=== PATIENT | male | born 1985 | race Two or more races ===

== ENCOUNTER 2017-08-24 01:50 | Inpatient (IN) | payer OTHER ==
[~2017-08-24] VITALS: Ht 172.7 cm; Wt 68.0 kg
[2017-08-24 03:44] VITALS: Ht 172.7 cm; Wt 68.0 kg
[2017-08-24 04:02] VITALS: BP 133/63; PULSE 80; RESP 18
[2017-08-24] MEDS ORDERED: ONDANSETRON 4 MG INJ IV PRN (04:30)
[2017-08-24] MEDS ORDERED: NACL 0.9% 3 ML SYG IV SCH (04:30)
[2017-08-24] MEDS: DEXTROSE 5%-0.45% NACL 1,000 ML IV SCH ×3 (04:46→19:21)
[2017-08-24] MEDS: morphine 4 MG/ML VIAL IV PRN (04:46)
[2017-08-24] MEDS ORDERED: AZITHROMYCIN 250 MG TAB PO ONE (05:30)
[2017-08-24] MEDS ORDERED: PIPER-TAZO 3.375 GM IV (PMX) 50 ML IVPB SCH (06:00)
[2017-08-24] MEDS: IBUPROFEN 600 MG TAB PO SCH ×4 (06:20→23:46)
--- NOTE | 2017-08-24 07:12 | HP ---
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 ddx, reactive arthritis , gout, etc PLAN -He will be given Zithromax 1 g p.o. 1 and will be placed on ceftriaxone 1 g IV daily -ID consult will be placed -Will order a urethral and throat swab -will repeat arthrocentesis of his right knee and also will consider from the left ankle as well -NSAIDs HPI/ROS Admit Date/Time Admit Date/Time Aug 24, 2017 at 03:36 Hx of Present Illness This is a 32-year-old male with no past medical history who initially presented to [facility] complaining of right knee and left ankle swelling and tenderness. He was transferred to [facility] for insurance reasons. He said symptoms started 2 days ago and have been progressively getting worse. He denied any trauma to his knee or ankle. He reported similar problems in the past. He reports that subjective fever and chills. He denied chest pain, shortness of breath, dysphagia/odynophagia, back pain or joint pain, dysuria or urethral discharge. Lab at [facility] shows a WBC of 11,000 otherwise CBC and CMP were within acceptable range. Synovial fluid analysis of the right knee shows WBC of almost 10,000 with 67% neutrophils. The fluid was yellowish and cloudy. On further questioning he stated that he has been having unprotected sex with his girlfriend and other goals as well. He denied history of STDs. PMH/Family/Social Social History Smoking Status: Current every day smoker Exam/Review of Systems Vital Signs Vitals Vital Signs Date Time Temp Pulse Resp B/P Pulse Ox O2 Delivery O2 Flow Rate FiO2 08/24/17 04:02 98.0 80 18 133/63 95 Room Air Exam Constitutional: alert, oriented, well developed Head: atraumatic, normocephalic Eyes: EOMI, PERRL Respiratory: clear to auscultation, normal air movement Cardiovascular: nl pulses, regular rate and rhythm Gastrointestinal: non-tender, soft Musculoskeletal: other (Right knee swelling and tenderness as well as left ankle swelling and tenderness, mainly on the lateral aspect) Medications Medications Current Medications Dextrose/Sodium Chloride (D5-1/2ns) 1,000 ml @ 100 mls/hr Q10H IV Last administered on 08/24/17 04:46; Admin Dose 100 MLS/HR; Start 08/24/17 at 04: 00 Morphine Sulfate (morphine) 3 mg Q4H PRN IV PAIN Last administered on 04:46; Admin Dose 3 MG; Start 08/24/17 at 04:00 Ondansetron HCl (Zofran Inj) 4 mg Q6H PRN IV NAUSEA AND/OR VOMITING; Start at 04:30 Famotidine (Pepcid Iv) 20 mg Q12 IV ; Start 08/24/17 at 09:00 Ibuprofen 600 mg 600 mg Q6 PO Last administered on 08/24/17 06:20; Admin Dose 600 MG; Start 08/24/17 at 06:00 Ceftriaxone Sodium (Rocephin) 50 ml @ 100 mls/hr DAILY IVPB ; Start 08/24/17 at 09:00 BHAVIK AREVALO MD Aug 24, 2017 07:12
[2017-08-24 07:13] LABS: BASOPHILS % 0.3 % (0.0-2.0); EOSINOPHILS # 0.1 10^3/ul (0.0-0.5); EOSINOPHILS % 0.5 % (0.0-7.0); HEMATOCRIT 39.1 % (42.0-52.0); HEMOGLOBIN 13.2 g/dl (14.0-18.0); LYMPHOCYTES # 1.8 10^3/ul (0.8-2.9); LYMPHOCYTES % 17.6 % (15.0-51.0); MEAN CORPUSCULAR HEMOGLOBIN 30.3 pg (29.0-33.0); MEAN CORPUSCULAR HGB CONC 33.8 g/dl (32.0-37.0); MEAN CORPUSCULAR VOLUME 89.9 fl (82.0-101.0); MEAN PLATELET VOLUME 10.5 fl (7.4-10.4); MONOCYTES % 9.6 % (0.0-11.0); NEUTROPHIL # 7.2 10^3/ul (1.6-7.5); NEUTROPHILS % 71.6 % (39.0-77.0); PLATELET COUNT 258 10^3/UL (140-415); RED BLOOD COUNT 4.35 10^6/ul (4.70-6.10); RED CELL DISTRIBUTION WIDTH 12.9 % (11.5-14.5); WHITE BLOOD COUNT 10.1 10^3/ul (4.8-10.8)
[2017-08-24 07:32] LABS: ALBUMIN 3.4 g/dl (3.3-4.9); ALBUMIN/GLOBULIN RATIO 1.06; BILIRUBIN,INDIRECT 0.7 mg/dl (0-1.1); BILIRUBIN,TOTAL 0.7 mg/dl (0.2-1.3); CALCIUM 9.1 mg/dl (8.4-10.2); CREATININE 0.8 mg/dl (0.61-1.24); MAGNESIUM 2.2 mg/dl (1.7-2.5); PHOSPHORUS 2.8 mg/dl (2.5-4.9); TOTAL PROTEIN 6.6 g/dl (6.1-8.1)
[2017-08-24 08:14] VITALS: BP 83/49; PULSE 57
[2017-08-24] MEDS ORDERED: INFLUENZA VIRUS VACCINE 0.5 ML SYG IM* ONE (09:00)
[2017-08-24] MEDS: CEFTRIAXONE 1 GM/50 ML (PMX) 50 ML IVPB SCH (09:38)
[2017-08-24] MEDS: FAMOTIDINE 20 MG INJ IV SCH ×2 (09:38→21:41)
--- NOTE | 2017-08-24 11:05 | PN ---
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 Right knee and left ankle swelling - Tap performed at [facility] but still significant swelling present. IR consulted for repeat tap of right knee and will need left ankle as well - Rule out gonococcal arthritis and currently received antibiotics to cover - ID on board and recommendations appreciated. - remains afebrile and WBC normal - continue on IV ceftriaxone - pain control 2. Disposition - continue monitoring. awaiting IR drainage Subjective 24 Hr Interval Summary Free Text/Dictation Patient still complaining of pain in right knee and left ankle but controlled on pain medications. Frustrated that no interventions have occurred yet. Exam/Review of Systems Vital Signs Vitals Vital Signs Date Time Temp Pulse Resp B/P Pulse Ox O2 Delivery O2 Flow Rate FiO2 08/24/17 08:14 98.0 57 83/49 98 Room Air 08/24/17 04:02 18 Exam Constitutional: alert, oriented, well developed, No distress Psych: nl mood/affect Head: atraumatic, normocephalic Eyes: EOMI, PERRL ENMT: mucosa pink and moist Neck: non-tender, supple Respiratory: clear to auscultation, No crackles/rales, No wheezing Cardiovascular: regular rate and rhythm, No edema, No systolic murmur Gastrointestinal: non-tender, soft, No distended, No rebound or guarding Musculoskeletal: joint tenderness (Right knee and left ankle), swelling Extremities: No cyanosis, No edema Neurological: PHARMACEUTICAL SERVICE REPRESENTATIVE II-XII intact, nl mental status, nl speech Skin: nl turgor Lymph: nl lymph nodes Results Result Diagram: 08/24/17 0607 08/24/17 0607 Results 24 hrs Laboratory Tests Test 08/24/17 06:07 White Blood Count 10.1 Red Blood Count 4.35 L Hemoglobin 13.2 L Hematocrit 39.1 L Mean Corpuscular Volume 89.9 Mean Corpuscular Hemoglobin 30.3 Mean Corpuscular Hemoglobin Concent 33.8 Red Cell Distribution Width 12.9 Platelet Count 258 Mean Platelet Volume 10.5 H Neutrophils % 71.6 Lymphocytes % 17.6 Monocytes % 9.6 Eosinophils % 0.5 Basophils % 0.3 Nucleated Red Blood Cells % 0.0 Neutrophils # 7.2 Lymphocytes # 1.8 Monocytes # 1.0 H Eosinophils # 0.1 Basophils # 0.0 Nucleated Red Blood Cells # 0.0 Sodium Level 139 Potassium Level 4.0 Chloride Level 105 Carbon Dioxide Level 29 Anion Gap 9 Blood Urea Nitrogen 13 Creatinine 0.80 Glucose Level 131 Calcium Level 9.1 Phosphorus Level 2.8 Magnesium Level 2.2 Total Bilirubin 0.7 Direct Bilirubin 0.00 Indirect Bilirubin 0.7 Aspartate Amino Transf (AST/SGOT) 19 Alanine Aminotransferase (ALT/SGPT) 22 Alkaline Phosphatase 47 Total Protein 6.6 Albumin 3.4 Globulin 3.20 Albumin/Globulin Ratio 1.06 Medications Medications Current Medications Dextrose/Sodium Chloride (D5-1/2ns) 1,000 ml @ 100 mls/hr Q10H IV Last administered on 08/24/17 04:46; Admin Dose 100 MLS/HR; Start 08/24/17 at 04: 00 Morphine Sulfate (morphine) 3 mg Q4H PRN IV PAIN Last administered on 04:46; Admin Dose 3 MG; Start 08/24/17 at 04:00 Ondansetron HCl (Zofran Inj) 4 mg Q6H PRN IV NAUSEA AND/OR VOMITING; Start at 04:30 Famotidine (Pepcid Iv) 20 mg Q12 IV Last administered on 08/24/17 09:38; Admin Dose 20 MG; Start 08/24/17 at 09:00 Ibuprofen 600 mg 600 mg Q6 PO Last administered on 08/24/17 06:20; Admin Dose 600 MG; Start 08/24/17 at 06:00 Ceftriaxone Sodium (Rocephin) 50 ml @ 100 mls/hr DAILY IVPB Last administered on 08/24/17 09:38; Admin Dose 100 MLS/HR; Start 08/24/17 at 09:00 MILAN BUTTERFIELD MD Aug 24, 2017 11:05
[2017-08-24 11:41] LABS: INR 1.09; PROTIME 14.2 Sec (11.9-14.9); PT RATIO 1.1
[2017-08-24 11:42] LABS: PARTIAL THROMBOPLASTIN TIME 36.3 Sec (25.0-35.0)
--- NOTE | 2017-08-24 14:59 | CONS ---
DATE OF ADMISSION: 08/24/2017 DATE OF CONSULTATION: 08/24/2017 TYPE OF CONSULTATION: Infectious Disease. REASON FOR CONSULTATION: Antibiotic management. HISTORY OF PRESENT ILLNESS: Jose Manuel Lockwood is a 32-year-old male with no past medical history, of signi ficance, who presented to [facility] complaining of right knee and left knee swelling and tenderness. He was transferred to [facility]. He notes that his symptoms started 2 d ays prior to admission and has been getting progressively worse. He denied any trauma. Reported si milar problems in the past. He has had subjective fever and chills, shortness of breath. He denied chest pain, shortness of breath, dysuria or urethral discharge. At [facility] his white count was 11,000, here it is 10.1, H and H of 13.2 and 39.1, platelet count 258,000. BUN and creatinine is 13 /0.80. At [facility] synovial fluid analysis of the right knee showed white count was 10,000 with 6 7% neutrophils, fluid was yellowish and cloudy. He notes that he has had unprotected sex with his g irlfriend and other girls as well. He denies a history of sexually transmitted diseases. PAST MEDICAL HISTORY: Operations as outlined. FAMILY HISTORY: Noncontributory. SOCIAL HISTORY: Does not smoke, drink or abuse drugs. ALLERGIES: NONE TO PENICILLIN, SULFA OR FOODS. MEDICATIONS: Per chart. REVIEW OF SYSTEMS: As per HPI. PHYSICAL EXAMINATION: GENERAL: The patient is a well-developed, well-nourished male who is alert, responsive, in no acute distress. VITAL SIGNS: Stable. He is afebrile. SKIN: Without generalized rash. HEENT: Within normal limits. NECK: Supple. LYMPH NODES: None palpable. CHEST: Decreased breath sounds at the bases. HEART: Without murmur or gallop. ABDOMEN: Soft, nontender, without organosplenomegaly or masses. EXTREMITIES: He has right knee swelling and tenderness and left ankle swelling and tenderness. RECTAL AND GENITAL: Deferred. NEUROLOGIC: No focal neurological abnormalities. IMPRESSION AND PLAN: The patient was thought to have possible gonococcal arthritis versus reactive arthritis or gout. He was started on azithromycin 1 gram p.o. and also on ceftriaxone 1 gram IV misbah ly. A urethral swab was ordered and a throat swab was ordered. A repeat arthrocentesis of the knee is to be considered as well as that of the left ankle. I concur with this current approach. The o rders are in. I will dictate my findings to the hospitalist. If there are any fever, blood culture s should be done. Dictated By: CJ CALL MD, JD/FAHEEM Conf#: [id number] DID#: [id number]
[2017-08-24 15:08] VITALS: BP 91/50; PULSE 50
[2017-08-24] MEDS ORDERED: LIDOCAINE 1% (MPF) 5 ML VIAL ONE (17:24)
[2017-08-24 17:58] VITALS: BP 108/55; RESP 14
[2017-08-24 18:00] LABS: SYN FLD CLARITY CLOUDY; SYN FLD COLOR ORANGE; SYN FLD CRYSTALS NO CRYSTALS SEEN (None seen); SYN FLD SOURCE RIGHT KNEE
[2017-08-24 18:08] LABS: SYN FLD PMN % 68.1 % (0.0-25.0); SYN FLD WBC 5491 /cmm (0-150)
[2017-08-24 18:18] LABS: SYN FLD MN % 31.9 &
[2017-08-24 20:00] VITALS: BP 101/67; RESP 20
[2017-08-25 02:00] VITALS: BP 103/55; RESP 20
[2017-08-25 05:59] LABS: BASOPHILS % 0.2 % (0.0-2.0); EOSINOPHILS # 0.1 10^3/ul (0.0-0.5); EOSINOPHILS % 1.5 % (0.0-7.0); HEMATOCRIT 38.8 % (42.0-52.0); HEMOGLOBIN 12.7 g/dl (14.0-18.0); LYMPHOCYTES % 24.8 % (15.0-51.0); MEAN CORPUSCULAR HGB CONC 32.7 g/dl (32.0-37.0); MEAN CORPUSCULAR VOLUME 91.5 fl (82.0-101.0); MEAN PLATELET VOLUME 10.4 fl (7.4-10.4); MONOCYTE # 0.9 10^3/ul (0.3-0.9); MONOCYTES % 11.1 % (0.0-11.0); PLATELET COUNT 245 10^3/UL (140-415); RED BLOOD COUNT 4.24 10^6/ul (4.70-6.10); WHITE BLOOD COUNT 8.1 10^3/ul (4.8-10.8)
[2017-08-25 06:37] LABS: CALCIUM 8.7 mg/dl (8.4-10.2); CREATININE 0.86 mg/dl (0.61-1.24); MAGNESIUM 2.1 mg/dl (1.7-2.5); PHOSPHORUS 4.2 mg/dl (2.5-4.9); POTASSIUM 4.1 mmol/L (3.5-5.1)
[2017-08-25] MEDS: IBUPROFEN 600 MG TAB PO SCH ×3 (06:43→17:18)
[2017-08-25] MEDS: DEXTROSE 5%-0.45% NACL 1,000 ML IV SCH ×2 (06:43→17:19)
[2017-08-25 07:29] VITALS: BP 93/44; RESP 18
[2017-08-25] MEDS: FAMOTIDINE 20 MG INJ IV SCH ×2 (08:43→20:54)
[2017-08-25] MEDS: CEFTRIAXONE 1 GM/50 ML (PMX) 50 ML IVPB SCH (08:44)
[2017-08-25 11:02] LABS: HAAIG REFLEX REFLEX FILED
--- NOTE | 2017-08-25 11:29 | RADRPT ---
PROCEDURE: Ultrasound guided right knee joint aspiration. CLINICAL INDICATION: Right knee joint effusion. Infection. TECHNIQUE: Prior to the procedure, informed consent was obtained. Risks including bleeding and in fection were explained to the patient. The patient understood was willing to proceed. A procedural pause was performed. The patient's name, date of , and procedure to be performed were verifie d. Using local anesthetic, sterile technique and ultrasound guidance, a 21-gauge needle was advanced in to the right knee joint. 40 ml of cloudy serosanguineous fluid was aspirated and sent for laboratory analysis. The patient tolerated the procedure well. COMPARISON: None. FINDINGS: Images demonstrate the needle within the right knee joint effusion. IMPRESSION: 1. Satisfactory ultrasound-guided right knee joint effusion aspiration. RPTAT: QQ .Livan Montenegro MD, MD Date Time Electronically viewed and signed by .Livan Montenegro MD, MD on 08/25/2017 11:28 .R/
--- NOTE | 2017-08-25 12:15 | PN ---
Date/Time of Note Date/Time of Note DATE: 08/25/17 TIME: 11:50 Assessment/Plan VTE Prophylaxis VTE Prophylaxis Intervention: SCD's Lines/Catheters IV [facility] (from [facility] Peripheral IV Urinary Cath still in place: No Assessment/Plan Chief Complaint/Hosp Course 32-year-old male with migratory polyarthralgia, transferred from OSH with the right knee and left ankle swelling who also had synovial tap done at OSH prior to arrival. 1. Right knee and left ankle swelling/Pain Status: Acute Remarks: Improved -Patient had another IR guided right knee joint effusion aspiration on 2016- Fluid analysis suggest possible inflammatory arthritis (WBC>2,000) but WBC not as high as one should see in septic arthritis. No crystal identification to suggest any gouty arthritis. Differential diagnosis includes : possible gonococcal arthritis. -Add Gram stain and culture to synovitic fluid. CRP, ESR, hip panel to a.m. labs to rule out other inflammatory arthritis. -Obtain MRI of right knee and left ankle prior left ankle needle aspiration by IR which has been ordered-Consider Orthopedics involvement. -ABX per ID recommendation. Continue pain control -Patient received antibiotic coverage for concern for possible gonococcal arthritis. Follow-up with ID recommendations. Patient was seen in collaboration with Problems: Subjective 24 Hr Interval Summary Free Text/Dictation Patient with improvement in the right knee symptoms. However he continues to have pain on right knee. Left ankle is swollen and patient is scheduled for IR guided drainage on left ankle today. Exam/Review of Systems Vital Signs Vitals Vital Signs Date Time Temp Pulse Resp B/P Pulse Ox O2 Delivery O2 Flow Rate FiO2 08/25/17 07:29 98.9 65 18 93/44 95 08/24/17 15:08 Room Air Intake and Output 08/24/17 08/24/17 08/25/17 15:00 23:00 07:00 Intake Total 1300 ml Balance 1300 ml Exam General: Well developed,adequately built, not in any acute distress . HEENT: Normocephalic, Atraumatic, No laceration or hematoma; Eyes: PEERL, Conjunctiva clear, Anicteric sclera Neck: Supple without any lymphadenopathy, nontender, no JVD, no carotid bruits, trachea midline, no thyromegaly Cardiac: S1, S2 auscultated, regular rhythm and rate, no mumurs or gallop Pulmonary: Normal respiratory effort. Chest clear to auscultation bilaterally, no adventitious breath sounds GI: Abdomen normal to inspection. Soft, non tender, non- distended, no masses, no rebound tenderness or guarding. Bowel sounds active on all four quadrants Genitourinary: Deferred Extremities: Redness/swelling on left ankle. Right knee swelling resolved. No cyanosis, clubbing, or edema. Pulses [2+] bilaterally. Full ROM on all four extremities. No focal weakness appreciated. Neurologic: Alert to person, place, time, and situation. Affect appropriate, intact sensation. Skin: Clean,dry, and intact. No ecchymosis, no rashes, or lesions Results Result Diagram: 08/25/17 0530 08/25/17 0530 Results 24 hrs Laboratory Tests Test 08/24/17 16:55 08/25/17 05:30 08/25/17 10:45 Synovial Fluid Source RIGHT KNEE Synovial Fluid Color ORANGE Synovial Fluid Appearance CLOUDY Synovial Fluid Volume 20.0 H Synovial Fluid WBC 5491 H Synovial Fluid Polynuclear WBCs % 68.1 H Synovial Fluid Mononuclear WBCs % 31.9 Synovial Fluid Crystals NO CRYSTALS SEEN White Blood Count 8.1 Red Blood Count 4.24 L Hemoglobin 12.7 L Hematocrit 38.8 L Mean Corpuscular Volume 91.5 Mean Corpuscular Hemoglobin 30.0 Mean Corpuscular Hemoglobin Concent 32.7 Red Cell Distribution Width 13.0 Platelet Count 245 Mean Platelet Volume 10.4 Neutrophils % 62.0 Lymphocytes % 24.8 Monocytes % 11.1 H Eosinophils % 1.5 Basophils % 0.2 Nucleated Red Blood Cells % 0.0 Neutrophils # 5.0 Lymphocytes # 2.0 Monocytes # 0.9 Eosinophils # 0.1 Basophils # 0.0 Nucleated Red Blood Cells # 0.0 Sodium Level 145 H Potassium Level 4.1 Chloride Level 106 Carbon Dioxide Level 30 Anion Gap 13 Blood Urea Nitrogen 12 Creatinine 0.86 Glucose Level 89 # Uric Acid 2.1 L Calcium Level 8.7 Phosphorus Level 4.2 Magnesium Level 2.1 C-Reactive Protein 6.9 H Hepatitis B Surface Antigen Pending Hepatitis B Core Total Antibody Pending Hepatitis C Antibody Pending Medications Medications Current Medications Dextrose/Sodium Chloride (D5-1/2ns) 1,000 ml @ 100 mls/hr Q10H IV Last administered on 08/25/17 06:43; Admin Dose 100 MLS/HR; Start 08/24/17 at 04: 00 Morphine Sulfate (morphine) 3 mg Q4H PRN IV PAIN Last administered on 04:46; Admin Dose 3 MG; Start 08/24/17 at 04:00 Ondansetron HCl (Zofran Inj) 4 mg Q6H PRN IV NAUSEA AND/OR VOMITING; Start at 04:30 Famotidine (Pepcid Iv) 20 mg Q12 IV Last administered on 08/25/17 08:43; Admin Dose 20 MG; Start 08/24/17 at 09:00 Ibuprofen 600 mg 600 mg Q6 PO Last administered on 08/25/17 06:43; Admin Dose 600 MG; Start 08/24/17 at 06:00 Ceftriaxone Sodium (Rocephin) 50 ml @ 100 mls/hr DAILY IVPB Last administered on 08/25/17 08:44; Admin Dose 100 MLS/HR; Start 08/24/17 at 09:00 JLUIS PARADA NP Aug 25, 2017 12:01
[2017-08-25 13:55] LABS: HEPATITIS B CORE ANTIBODY NEGATIVE (NEGATIVE)
[2017-08-25 14:12] VITALS: BP 116/57; RESP 18
[2017-08-25 20:00] VITALS: BP 116/60; RESP 20
--- NOTE | 2017-08-25 23:01 | RADRPT ---
PROCEDURE: MRI OF THE RIGHT KNEE CLINICAL INDICATION: Arthritis, pain. History of meniscus tear 5 years ago. History of recent aspir ation of the right knee. Images obtained were of the right knee. TECHNIQUE: MRI images were obtained utilizing multiple sequences in multiple planes. Images were i nterpreted on a high-resolution PACS system. COMPARISON: None available. FINDINGS: There is no tear of the medial meniscus. The medial compartment cartilage is intact. There is no tear of the lateral meniscus. There is mild chondral softening along the central lateral tibial plateau. There is mild cortical irregularity along the central lateral tibial plateau with m inimal depression of the subchondral surface and minimal subchondral marrow edema which may be from prior trauma. There is no acute fracture. The lateral femoral condylar cartilage is intact. The anterior cruciate ligament is intact with mild mucoid degeneration. The posterior cruciate ligam ent is intact. The medial and lateral collateral ligaments are intact. The posterolateral corner supporting struct ures are intact. There is a small full-thickness chondral fissure along the median eminence of the patella with mild subchondral marrow edema on axial image 9. The trochlear cartilage is intact. The quadriceps and patellar tendons are intact. The medial and lateral patellofemoral ligament comp lexes are intact. There is normal signal in Hoffa's fat pad. A large joint effusion with mild synovitis is present. There is no popliteal cyst. There is mild edema within the anterior compartment musculature distal to the joint line. Mild edema is also noted within the subcutaneous soft tissues of the posterior knee and anterior knee. The pro ximal tibiofibular joint is intact with mild chondral loss and osseous spurring. RPTAT: HTLT IMPRESSION: 1. Small full-thickness chondral fissure within the median eminence of the patella with mild subcho ndral marrow edema. 2. Mild chondral softening within the central lateral tibial plateau with mild cortical irregularity along the subchondral surface with minimal subchondral marrow edema which may be from prior trauma but no acute fracture. 3. Mild mucoid degeneration of the anterior cruciate ligament. 4. Large joint effusion with mild synovitis. This appears out of proportion to the other findings in the knee without an acute fracture or history of trauma which can be seen with inflammatory arthrop athy or infection. .Myra Slaughter MD, MD Date Time Electronically viewed and signed by .Myra Slaughter MD, MD on 08/25/2017 23:01 .T/
--- NOTE | 2017-08-25 23:19 | RADRPT ---
PROCEDURE: MRI OF THE LEFT ANKLE. CLINICAL INDICATION: Arthritis, pain. Left ankle pain and swelling for 1 week. History of prior fra cture 8 years ago. TECHNIQUE: Multiple MRI images were obtained utilizing multiple pulse sequences in all three planes . Images were interpreted on high-resolution PACS system. COMPARISON: None. FINDINGS: There are areas of partial thickness chondral loss and fraying within the medial talar dome and oppo sing tibial plafond with mild subchondral marrow edema and small subchondral cysts along the medial talar dome. There is no significant depression of the subchondral surface. Small foci of partial thi ckness chondral loss with mild subchondral marrow edema and osseous spurring along the anterior and posterior tibial plafond are also present. There is a large tibiotalar joint effusion with mild syno vitis. There is no acute fracture. The subtalar joint is intact with mild chondral loss and a small to mode rate joint effusion. There is an os trigonum without marrow edema. Mild chondral loss and osseous sp urring are also present within the talonavicular joint. The calcaneocuboid and naviculocuneiform lauryn nts are intact. There is no tarsal coalition. The sinus tarsi is intact with a small amount of fluid . There is a nonaggressive appearing bone lesion within the central calcaneus measuring about 1.9 cm AP by 2.0 cm cranial-caudal by 1.5 cm transverse which may correspond with a cyst. There is a complete tear of the anterior talofibular ligament. The calcaneofibular ligament is intac t with mild thickening. The posterior talofibular ligament is intact. The anterior and posterior syn desmotic ligaments are intact. There is a mild sprain of the deltoid ligament fibers with mild incre ased signal. Spring ligament appears intact. The posterior tibial, flexor digitorum longus, flexor hallucis longus tendons are intact with a smal l to moderate amount of surrounding fluid. There is also moderate to marked tenosynovitis of the per oneus longus and brevis tendons which are otherwise intact. The superior peroneal retinaculum is int act. The tibialis anterior and extensor tendons are intact. The Achilles tendon and plantar fascia are intact. The plantar hindfoot muscles are unremarkable, without denervation or atrophy. RPTAT: HTLT IMPRESSION: 1. Osteoarthrosis of the tibiotalar joint with areas of partial thickness chondral loss along the an terior, posterior, and medial aspect of the joint with mild subchondral marrow edema. 2. Large tibiotalar joint effusion which appears out of portion to the other findings within the ank le without history of recent trauma or acute fracture which can be seen with inflammatory arthropath y or infection. 3. Complete tear of the anterior talofibular ligament. 4. Moderate to marked tenosynovitis of the peroneal tendons and mild to moderate tenosynovitis of th e posterior tibial and flexor tendons. 5. Nonaggressive appearing 2.0 cm lesion within the calcaneus which may correspond with intraosseous ganglion cyst or bone cyst. .Myra Slaughter MD, MD Date Time Electronically viewed and signed by .Myra Slaughter MD, on 08/25/2017 23:19 .T/
[2017-08-26] MEDS: IBUPROFEN 600 MG TAB PO SCH ×5 (00:09→23:50)
[2017-08-26 02:00] VITALS: BP 96/52; RESP 20
[2017-08-26] MEDS: morphine 4 MG/ML VIAL IV PRN (02:01)
[2017-08-26] MEDS: DEXTROSE 5%-0.45% NACL 1,000 ML IV SCH ×2 (06:00→16:00)
--- NOTE | 2017-08-26 06:48 | PN ---
DATE: 08/25/2017 SUBJECTIVE: No acute events overnight. The patient is awake, feels good, looks comfortable, no fev ers. Synovial fluid cultures pending, white blood cell count of synovial fluid is 5491. Hepatitis B and C serology negative. WBC 8.1, no shift, no bands. ESR 41, BUN 12, creatinine 0.86. Uric acid 2.1. ANTIMICROBIALS: The patient is on IV Rocephin. MICROBIOLOGY DIAGNOSTICS: MRI pending. PHYSICAL EXAMINATION: GENERAL: Well-nourished, well-developed, middle-aged man who is alert, in no distress. HEENT: Head atraumatic, normocephalic. Sclerae anicteric. Buccal mucosa pink. NECK: Supple. CHEST: Rise symmetrical. Breath sounds clear. HEART: S1, S2. ABDOMEN: Soft. Bowel tones present. EXTREMITIES: Left knee, no erythema. There is some swelling on the lateral part with some fluctuan ce. ASSESSMENT: 1. Left knee pain with fluid collection status post fluid aspiration. So far as per cytology, ther e is no evidence of infection, final cultures pending. PLAN: The patient remains stable, pending MRI of left knee pending final cultures and final workup. Dictated By: CINTHYA DARNELL PATIENT ASSESSMENT COORDINATOR for CJ CALL MD NI/NTS Conf#: [id number] DID#: [id number] CC: BHAVIK AREVALO MD;*EndCC*
[2017-08-26 07:26] VITALS: BP 97/43; RESP 18
[2017-08-26] MEDS: FAMOTIDINE 20 MG INJ IV SCH ×2 (09:50→21:10)
[2017-08-26] MEDS: CEFTRIAXONE 1 GM/50 ML (PMX) 50 ML IVPB SCH (09:50)
[2017-08-26] MEDS ORDERED: BETAMET NA PHOS/AC(6 MG/ML) 5ML INJ INJ ONE (11:30)
[2017-08-26] MEDS ORDERED: BUPIVACAINE 0.5%/EPI (SDV) 30 ML INJ INJ ONE (11:30)
--- NOTE | 2017-08-26 12:59 | PN ---
Date/Time of Note Date/Time of Note DATE: 08/26/17 TIME: 12:46 Assessment/Plan VTE Prophylaxis VTE Prophylaxis Intervention: SCD's Lines/Catheters IV Catheter Type (from [facility]): Peripheral IV Urinary Cath still in place: No Assessment/Plan Chief Complaint/Hosp Course 32-year-old male with migratory polyarthralgia, transferred from OSH with the right knee and left ankle swelling who also had synovial tap done at OSH prior to arrival. 1. Right knee and left ankle swelling/pain, Most likely etiology is inflammatory vs infectious arthritis/arthropathy. Status: Acute -Status post IR guided right knee joint effusion aspiration on 08/24/2017- F/u MRI with Large tibiotalar joint effusion, Large right knee effusion with degenerative changes. Fluid analysis (WBC>2,000-but not high as one should see in septic arthritis) along with high blood level of ESR/CRP suggestive of possible inflammatory arthritis. No crystal identification to suggest any gouty arthritis. Hep serology negative. -Orthopedic consult with who agreed to see patient. -F/u Gram stain and culture to synovitic fluid. -ABX per ID recommendation. Continue pain control -Obtain GC serology -Consider ATTILA/Rh factor analysis and Rheumatology follow-up as outpatient if indicated. Follow-up with ortho/ ID recommendations. Patient was seen in collaboration with Problems: Subjective 24 Hr Interval Summary Free Text/Dictation No acute distress. Exam/Review of Systems Vital Signs Vitals Vital Signs Date Time Temp Pulse Resp B/P Pulse Ox O2 Delivery O2 Flow Rate FiO2 08/26/17 07:26 97.5 48 18 97/43 97 08/24/17 15:08 Room Air Intake and Output 08/25/17 08/25/17 08/26/17 15:00 23:00 07:00 Intake Total 50 ml 1640 ml 500 ml Balance 50 ml 1640 ml 500 ml Exam General: Well developed,adequately built, not in any acute distress . HEENT: Normocephalic, Atraumatic, No laceration or hematoma; Eyes: PEERL, Conjunctiva clear, Anicteric sclera Neck: Supple without any lymphadenopathy, nontender, no JVD, no carotid bruits, trachea midline, no thyromegaly Cardiac: S1, S2 auscultated, regular rhythm and rate, no mumurs or gallop Pulmonary: Normal respiratory effort. Chest clear to auscultation bilaterally, no adventitious breath sounds GI: Abdomen normal to inspection. Soft, non tender, non- distended, no masses, no rebound tenderness or guarding. Bowel sounds active on all four quadrants Genitourinary: Deferred Extremities: Redness/swelling on left ankle. Right knee swelling resolved. No cyanosis, clubbing, or edema. Pulses [2+] bilaterally. Full ROM on all four extremities. No focal weakness appreciated. Neurologic: Alert to person, place, time, and situation. Affect appropriate, intact sensation. Skin: Clean,dry, and intact. No ecchymosis, no rashes, or lesions Results Result Diagram: 08/25/1752908/25/1730 Medications Medications Current Medications Dextrose/Sodium Chloride (D5-1/2ns) 1,000 ml @ 100 mls/hr Q10H IV Last administered on 08/25/17 17:19; Admin Dose 100 MLS/HR; Start 08/24/17 at 04: 00 Morphine Sulfate (morphine) 3 mg Q4H PRN IV PAIN Last administered on 02:01; Admin Dose 3 MG; Start 08/24/17 at 04:00 Ondansetron HCl (Zofran Inj) 4 mg Q6H PRN IV NAUSEA AND/OR VOMITING; Start at 04:30 Famotidine (Pepcid Iv) 20 mg Q12 IV Last administered on 08/26/17 09:50; Admin Dose 20 MG; Start 08/24/17 at 09:00 Ibuprofen 600 mg 600 mg Q6 PO Last administered on 08/26/17 05:58; Admin Dose 600 MG; Start 08/24/17 at 06:00 Ceftriaxone Sodium (Rocephin) 50 ml @ 100 mls/hr DAILY IVPB Last administered on 08/26/17 09:50; Admin Dose 100 MLS/HR; Start 08/24/17 at 09:00 Bupivacaine HCl/ Epinephrine Bitart (Sensorcaine 0.5%-Epi 1:200,000) DOSE PER MD ONCE INJ ; Start 08/26/17 at 13:00; Stop 08/26/17 at 23:00 JLUIS PARADA NP Aug 26, 2017 12:58
[2017-08-26] MEDS ORDERED: BUPIVACAINE 0.5%/EPI 1:200,000 50 ML (MDV) INJ SCH (13:00)
--- NOTE | 2017-08-26 13:44 | CONS ---
Date/Time of Note Date/Time of Note DATE: 08/26/17 TIME: 13:42 Assessment/Plan Assessment/Plan Chief Complaint/Hosp Course SUBJECTIVE: No acute events overnight. Looks comfortable no fevers ANTIMICROBIALS: IV Rocephin. PHYSICAL EXAMINATION: GENERAL: Well-nourished, well-developed, middle-aged man who is alert, in no distress. HEENT: Head atraumatic, normocephalic. Sclerae anicteric. Buccal mucosa pink. NECK: Supple. CHEST: Rise symmetrical. Breath sounds clear. HEART: S1, S2. ABDOMEN: Soft. Bowel tones present. EXTREMITIES: Left knee, no erythema. There is some swelling on the lateral part with some fluctuance. ASSESSMENT: 1. Left knee pain with fluid collection status post fluid aspiration. So far as per cytology, there is no evidence of infection, final cultures pending. PLAN: The patient remains stable, pending ortho eval. GOGO statff Problems: Consultation Date/Type/Reason Admit Date/Time Aug 24, 2017 at 03:36 Initial Consult Date Reason for Consultation id Exam/Review of Systems Vital Signs Vitals Vital Signs Date Time Temp Pulse Resp B/P Pulse Ox O2 Delivery O2 Flow Rate FiO2 08/26/17 07:26 97.5 48 18 97/43 97 08/24/17 15:08 Room Air Intake and Output 08/25/17 08/25/17 08/26/17 15:00 23:00 07:00 Intake Total 50 ml 1640 ml 500 ml Balance 50 ml 1640 ml 500 ml Results Result Diagram: 08/25/17 0530 08/25/17 0530 Medications Medications Current Medications Dextrose/Sodium Chloride (D5-1/2ns) 1,000 ml @ 100 mls/hr Q10H IV Last administered on 08/25/17 17:19; Admin Dose 100 MLS/HR; Start 08/24/17 at 04: 00 Morphine Sulfate (morphine) 3 mg Q4H PRN IV PAIN Last administered on 02:01; Admin Dose 3 MG; Start 08/24/17 at 04:00 Ondansetron HCl (Zofran Inj) 4 mg Q6H PRN IV NAUSEA AND/OR VOMITING; Start at 04:30 Famotidine (Pepcid Iv) 20 mg Q12 IV Last administered on 08/26/17 09:50; Admin Dose 20 MG; Start 08/24/17 at 09:00 Ibuprofen 600 mg 600 mg Q6 PO Last administered on 08/26/17 05:58; Admin Dose 600 MG; Start 08/24/17 at 06:00 Ceftriaxone Sodium (Rocephin) 50 ml @ 100 mls/hr DAILY IVPB Last administered on 08/26/17 09:50; Admin Dose 100 MLS/HR; Start 08/24/17 at 09:00 Bupivacaine HCl/ Epinephrine Bitart (Sensorcaine 0.5%-Epi 1:200,000) DOSE PER MD ONCE INJ ; Start 08/26/17 at 13:00; Stop 08/26/17 at 23:00 CINTHYA DARNELL NP Aug 26, 2017 13:44
[2017-08-26 14:37] VITALS: BP 100/50; RESP 18
--- NOTE | 2017-08-26 18:43 | CONS ---
DATE OF ADMISSION: 08/24/2017 DATE OF CONSULTATION: 08/26/2017 HISTORY OF PRESENT ILLNESS: The patient is a 32-year-old male, who was transferred in on the 24 August 2017 from [facility] because of the insurance arrangement. He obviously went to [facility] because of the painful swelling involving his right knee and left ankle. According to the patient, the right knee swelling started about 5 days ago without any memorable trauma. After a day or 2 painful swelling of the left ankle developed possibly because he was putting more weight on the left lower extremity because of the painful swelling involving right knee, however, the patient was not sure. He did not measure his temperature, but he thought that he had some feverishness sensation during this time, denies any a history of chills. He has a known history of IV drug abuse and according to the patient, his the last IV drug use was about a year ago. PHYSICAL EXAMINATION: GENERAL APPEARANCE: My examination revealed a 32-year-old male, who is not in any acute distress. VITAL SIGNS: He was afebrile at the time of my examination. EXTREMITIES: There was a considerable effusion involving the right knee along with mild tenderness and limit of motion. There also was a mild swelling around the left ankle with circumferential tenderness both in the right knee and left ankle. There were no signs of acute pyogenic process, such as increased warmth, acute tenderness or redness. DIAGNOSTIC DATA: The plain x-rays of the right knee and left ankle was not available because it has not been done. However, MRI scan of the right knee and left ankle was showing a considerable effusion. There also was evidence of degenerative changes which is unusual considering his age. DIAGNOSTIC IMPRESSION: Painful swelling of the right knee and left ankle. DIFFERENTIAL DIAGNOSES: Should include. 1. Symptomatic exacerbation of the pre-existing degenerative osteoarthritis of the right knee and left ankle. 2. Crystalline arthritis. 3. Septic arthritis. The WBC count in the laboratory studies of the aspirants was not high enough to satisfy the septic arthritis. There were no crystals in the examination of the synovial fluid. RECOMMENDATIONS: Trial of steroid injection of the right knee and left ankle for the treatment and also for the diagnosis by trial treatment. Recommended injection of the steroid into the right knee and left ankle was done immediately following my evaluation. Dictated By: In Charline Ramey MD /[email or web address] /Document#: [id number]
[2017-08-26 19:31] VITALS: BP 103/52; RESP 16
[2017-08-27] MEDS: morphine 4 MG/ML VIAL IV PRN ×2 (01:27→05:42)
[2017-08-27] MEDS: DEXTROSE 5%-0.45% NACL 1,000 ML IV SCH (01:49)
[2017-08-27 02:00] VITALS: BP 102/61; RESP 16
[2017-08-27] MEDS: IBUPROFEN 600 MG TAB PO SCH ×2 (05:42→12:55)
[2017-08-27 07:08] LABS: BASOPHILS % 0.1 % (0.0-2.0); HEMATOCRIT 40.7 % (42.0-52.0); HEMOGLOBIN 13.6 g/dl (14.0-18.0); LYMPHOCYTES # 0.8 10^3/ul (0.8-2.9); MEAN CORPUSCULAR HGB CONC 33.4 g/dl (32.0-37.0); MEAN CORPUSCULAR VOLUME 89.8 fl (82.0-101.0); MEAN PLATELET VOLUME 10.6 fl (7.4-10.4); MONOCYTE # 0.1 10^3/ul (0.3-0.9); MONOCYTES % 0.7 % (0.0-11.0); NEUTROPHIL # 9.1 10^3/ul (1.6-7.5); NEUTROPHILS % 90.8 % (39.0-77.0); PLATELET COUNT 349 10^3/UL (140-415); RED BLOOD COUNT 4.53 10^6/ul (4.70-6.10); WHITE BLOOD COUNT 10.1 10^3/ul (4.8-10.8)
[2017-08-27 07:34] VITALS: BP 109/59; RESP 18
[2017-08-27 07:40] LABS: CALCIUM 9.4 mg/dl (8.4-10.2); CREATININE 0.73 mg/dl (0.61-1.24); POTASSIUM 4.6 mmol/L (3.5-5.1)
[2017-08-27] MEDS: CEFTRIAXONE 1 GM/50 ML (PMX) 50 ML IVPB SCH (08:16)
[2017-08-27] MEDS: FAMOTIDINE 20 MG INJ IV SCH (08:18)
[2017-08-27] MEDS ORDERED: FLUCONAZOLE 100 MG TAB PO SCH (11:00)
--- NOTE | 2017-08-27 12:55 | PDOCDIS ---
Discharge Instructions CONDITION Patient Condition: Stable HOME CARE INSTRUCTIONS: Special Diet: REGULAR DIET FOLLOW UP/APPOINTMENTS Follow-up Plan 1.Follow up with primary care physician in 1 week If you don't have one please let someone know, we can give you resources that may help you pick one. You may also call your insurance company to assign one to you. Review your medication list with your nurse before leaving and if you need new prescriptions please let your nurse know. I may have made changes to your home medications or given you new prescriptions, please let your primary doctor know as well. Stay compliant with your medications and report any side effects to your PCP or pharmacist. Return to the ER if you have any concerns and cannot reach your doctors or call your insurance company, they usually have a nurse that can help you. 2. Call 911 or go to the nearest emergency room if experiencing loss of consciousness, dizziness, chest pain, shortness of breath, vomiting/abdominal pain, speech difficulties, motor weakness or any unusual symptoms. Other orders: Avoid activities that cause wears and tears on joints. JLUIS PARADA NP Aug 27, 2017 12:55
[2017-08-27] MEDS ORDERED: IBUP-1542 PO (12:59)
[2017-08-27] MEDS ORDERED: NYST1000 PO (12:59)
[2017-08-27] MEDS ORDERED: FLUC100T PO (12:59)
[2017-08-27] MEDS ORDERED: NYSTATIN SUSP 5 ML CUP PO SCH (13:00)
--- NOTE | 2017-08-27 13:17 | DS ---
Date/Time of Note Date/Time of Note DATE: 08/27/17 TIME: 13:13 Discharge Summary Admission/Discharge Info Admit Date/Time Aug 24, 2017 at 03:36 Discharge Date/Time Discharge Diagnosis 1. Right knee and left ankle swelling/pain, Most likely etiology is inflammatory arthritis/arthropathy. Symptoms resolved. Status post IR guided right knee joint effusion aspiration on 08/24/2017, Status post intra-articular steroid injections. Patient Condition: Stable Consults Dr. Smith, ID Dr. Ramey, orthopedics Procedures IR guided right knee joint effusion aspiration on 08/24/2017 Intra-articular steroidal injection on right knee and left ankle on 08/26/2017. 08/25/2017. MRI of left ankle. IMPRESSION: 1. Osteoarthrosis of the tibiotalar joint with areas of partial thickness chondral loss along the anterior, posterior, and medial aspect of the joint with mild subchondral marrow edema. 2. Large tibiotalar joint effusion which appears out of portion to the other findings within the ankle without history of recent trauma or acute fracture which can be seen with inflammatory arthropathy or infection. 3. Complete tear of the anterior talofibular ligament. 4. Moderate to marked tenosynovitis of the peroneal tendons and mild to moderate tenosynovitis of the posterior tibial and flexor tendons. 5. Nonaggressive appearing 2.0 cm lesion within the calcaneus which may correspond with intraosseous ganglion cyst or bone cyst. 08/25/2017. MRI of right knee. IMPRESSION: 1. Small full-thickness chondral fissure within the median eminence of the patella with mild subchondral marrow edema. 2. Mild chondral softening within the central lateral tibial plateau with mild cortical irregularity along the subchondral surface with minimal subchondral marrow edema which may be from prior trauma but no acute fracture. 3. Mild mucoid degeneration of the anterior cruciate ligament. 4. Large joint effusion with mild synovitis. This appears out of proportion to the other findings in the knee without an acute fracture or history of trauma which can be seen with inflammatory arthropathy or infection. Hospital Course This is a 32-year-old male with migratory polyarthralgia, transferred from OSH with the right knee and left ankle swelling who also had synovial tap done at OSH prior to arrival. Patient was treated with 1 g of azithromycin empirically secondary to his high risk sexual/social life. Patient had undergone another IR guided right knee joint effusion aspiration on 08/24/2017 and fluid analysis showed a WBC count 5491 with synovial polynuclear 68.1. There was no crystals identified. Patient then had an MRI which showed large tibiotalar joint effusion, large right knee effusion with degenerative changes. Patient also had elevated ESR and CRP. Reviewing all these findings ,most likely etiology is inflammatory arthritis/possible osteoarthritis which is very unusual at this age. Patient was evaluated by infectious disease team as well as orthopedic team. He was continued on appropriate antibiotic regimen per ID colleagues. Patient also had intra-articular steroid injected to right knee and left knee by our orthopedic team on 08/26/2017 with complete resolve meant in symptoms. Gram stain without any growth after 1 day. After discussion with ID colleagues in orthopedics, recommendation is to discharge patient on NSAIDs, and fluconazole. There is no further inpatient workup indicated. During the course of hospitalization, we had also ordered an ATTILA and Rh factor analysis which was pending at time of discharge. Patient also had negative hip panel. At this time, patient is feeling back to baseline and eager to be discharged. He was also recommended to follow-up with the screener operator as outpatient if he continues to have any symptoms. Patient was also instructed on avoiding activities that can put more stress, wear and tear on joints. Patient verbalized discharge instructions. Approximately 60 minute was spent in coordinating the discharge on this patient. Patient is seen in collaboration with Dr.Abe Stalin Ortiz Active Scripts Nystatin (Nystatin) 100,000 Unit/1 Ml Oral.susp, 5 ML PO QID for 7 Days, #28 DOSE Prov:PARADA,JLUIS V. NURSING CARE ATTENDANT 08/27/17 Ibuprofen* (Ibuprofen*) 600 Mg Tablet, 600 MG PO Q6, #30 TAB Prov:PARADA,JLUIS V. NURSING CARE ATTENDANT 08/27/17 Fluconazole* (Diflucan*) 100 Mg Tablet, 100 MG PO DAILY for 10 Days, #10 TAB Prov:PARADA,JLUIS V. NURSING CARE ATTENDANT 08/27/17 Follow-up Plan 1.Follow up with primary care physician in 1 week If you don't have one please let someone know, we can give you resources that may help you pick one. You may also call your insurance company to assign one to you. Review your medication list with your nurse before leaving and if you need new prescriptions please let your nurse know. I may have made changes to your home medications or given you new prescriptions, please let your primary doctor know as well. Stay compliant with your medications and report any side effects to your PCP or pharmacist. Return to the ER if you have any concerns and cannot reach your doctors or call your insurance company, they usually have a nurse that can help you. 2. Call 911 or go to the nearest emergency room if experiencing loss of consciousness, dizziness, chest pain, shortness of breath, vomiting/abdominal pain, speech difficulties, motor weakness or any unusual symptoms. Other instructions: Avoid activities that cause wears and tears on joints. Primary Care Provider Care Physician No Primary Pending Labs Laboratory Tests Test 08/27/17 06:24 White Blood Count 10.110^3/ul (4.8-10.8) Red Blood Count 4.5310^6/ul (4.70-6.10) Hemoglobin 13.6g/dl (14.0-18.0) Hematocrit 40.7% (42.0-52.0) Mean Corpuscular Volume 89.8fl (82.0-101.0) Mean Corpuscular Hemoglobin 30.0pg (29.0-33.0) Mean Corpuscular Hemoglobin Concent 33.4g/dl (32.0-37.0) Red Cell Distribution Width 12.0% (11.5-14.5) Platelet Count 52532^3/UL (140-415) Mean Platelet Volume 10.6fl (7.4-10.4) Neutrophils % 90.8% (39.0-77.0) Lymphocytes % 8.0% (15.0-51.0) Monocytes % 0.7% (0.0-11.0) Eosinophils % 0.0% (0.0-7.0) Basophils % 0.1% (0.0-2.0) Nucleated Red Blood Cells % 0.0/100WBC (0.0-0.0) Neutrophils # 9.110^3/ul (1.6-7.5) Lymphocytes # 0.810^3/ul (0.8-2.9) Monocytes # 0.110^3/ul (0.3-0.9) Eosinophils # 0.010^3/ul (0.0-0.5) Basophils # 0.010^3/ul (0.0-0.1) Nucleated Red Blood Cells # 0.010^3/ul (0.0-0.0) Sodium Level 143mmol/L (135-144) Potassium Level 4.6mmol/L (3.5-5.1) Chloride Level 105mmol/L (97-110) Carbon Dioxide Level 25mmol/L (21-31) Anion Gap 18 (8-16) Blood Urea Nitrogen 9mg/dl (7-20) Creatinine 0.73mg/dl (0.61-1.24) Glucose Level 155mg/dl (70-220) Calcium Level 9.4mg/dl (8.4-10.2) JLUIS PARADA NP Aug 27, 2017 13:17
--- NOTE | 2017-08-27 14:40 | CONS ---
Date/Time of Note Date/Time of Note DATE: 08/27/17 TIME: 14:39 Assessment/Plan Assessment/Plan Chief Complaint/Hosp Course SUBJECTIVE: No acute events overnight. Sleeping, looks comfortable ANTIMICROBIALS: IV Rocephin. PHYSICAL EXAMINATION: GENERAL: Well-nourished, well-developed, middle-aged man who is alert, in no distress. HEENT: Head atraumatic, normocephalic. Sclerae anicteric. Buccal mucosa pink. NECK: Supple. CHEST: Rise symmetrical. Breath sounds clear. HEART: S1, S2. ABDOMEN: Soft. Bowel tones present. EXTREMITIES: Left knee, no erythema. There is some swelling on the lateral part with some fluctuance. ASSESSMENT: 1. Left knee pain with fluid collection status post fluid aspiration, no evidence of infectious process. PLAN: The patient remains stable, ortho on case, ok dc off abx. DW staff Problems: Consultation Date/Type/Reason Admit Date/Time Aug 24, 2017 at 03:36 Type of Consultation: ID Exam/Review of Systems Vital Signs Vitals Vital Signs Date Time Temp Pulse Resp B/P Pulse Ox O2 Delivery O2 Flow Rate FiO2 08/27/17 07:34 97.6 76 18 109/59 96 08/24/17 15:08 Room Air Intake and Output 08/26/17 08/26/17 08/27/17 14:59 22:59 06:59 Intake Total 50 ml 720 ml 1170 ml Balance 50 ml 720 ml 1170 ml Results Result Diagram: 08/27/17 0624 08/27/17 0624 Results 24 hrs Laboratory Tests Test 08/27/17 06:24 White Blood Count 10.1 # Red Blood Count 4.53 L Hemoglobin 13.6 L Hematocrit 40.7 L Mean Corpuscular Volume 89.8 Mean Corpuscular Hemoglobin 30.0 Mean Corpuscular Hemoglobin Concent 33.4 Red Cell Distribution Width 12.0 Platelet Count 349 # Mean Platelet Volume 10.6 H Neutrophils % 90.8 H Lymphocytes % 8.0 L Monocytes % 0.7 Eosinophils % 0.0 Basophils % 0.1 Nucleated Red Blood Cells % 0.0 Neutrophils # 9.1 H Lymphocytes # 0.8 Monocytes # 0.1 L Eosinophils # 0.0 Basophils # 0.0 Nucleated Red Blood Cells # 0.0 Sodium Level 143 Potassium Level 4.6 Chloride Level 105 Carbon Dioxide Level 25 Anion Gap 18 H Blood Urea Nitrogen 9 Creatinine 0.73 Glucose Level 155 Calcium Level 9.4 Medications Medications Current Medications Dextrose/Sodium Chloride (D5-1/2ns) 1,000 ml @ 100 mls/hr Q10H IV Last administered on 08/25/17 17:19; Admin Dose 100 MLS/HR; Start 08/24/17 at 04: 00 Morphine Sulfate (morphine) 3 mg Q4H PRN IV PAIN Last administered on 05:42; Admin Dose 3 MG; Start 08/24/17 at 04:00 Ondansetron HCl (Zofran Inj) 4 mg Q6H PRN IV NAUSEA AND/OR VOMITING; Start at 04:30 Famotidine (Pepcid Iv) 20 mg Q12 IV Last administered on 08/27/17 08:18; Admin Dose 20 MG; Start 08/24/17 at 09:00 Ibuprofen (Motrin) 600 mg Q6 PO Last administered on 08/27/17 12:55; Admin Dose 600 MG; Start 08/24/17 at 06:00 Fluconazole (Diflucan) 100 mg DAILY PO Last administered on 08/27/17 12:55; Admin Dose 100 MG; Start 08/27/17 at 11:00 Nystatin (Nystatin Susp) 5 ml QID PO Last administered on 08/27/17 13:12; Admin Dose 5 ML; Start 08/27/17 at 13:00 CINTHYA DARNELL NP Aug 27, 2017 14:40
[2017-08-27 14:45] VITALS: BP 113/64; RESP 18
[2017-08-28 12:21] LABS: ANA SCREEN NEGATIVE (NEGATIVE)
== END 2017-08-27 15:20 | disposition home or self-care (01) | DRG 554 ==
LOC: MS3 03:36 → MS2 16:36
PROVIDERS: ADMIT Internal Medicine; ATTEND Internal Medicine
PROC: 0S9C3ZX Drainage of Right Knee Joint, Percutaneous Approach, Diagnostic (ICD-10-PCS; principal; 2017-08-24)
DX: M17.11 Unilateral primary osteoarthritis, right knee (principal); M19.071 Primary osteoarthritis, right ankle and foot; M25.461 Effusion, right knee
CPT/HCPCS: 73721; 80048; 80053; 83735; 84100; 84560; 85025; 85610; 85651; 85730; 86038; 86140; 86430; 86704; 86709; 86803; 87040; 87070; 87340; 89060; J0696; J0702; J2270; J7042